=== PATIENT | female | born 1980 | race Asian ===

== ENCOUNTER → 2016-04-18 | Outpatient (CLI) | payer OTHER ==
[~2016-04-18] MED LIST: GADOBUTROL 10 ML VIAL IVP ONE
--- NOTE | 2016-04-18 19:55 | MR ---
MRI of the Brain (Without and With Contrast) at 1655 hours Clinical Indication: Dizziness. G35--MS. Technique: T1-weighted images were acquired axially and sagittally from the foramen magnum to the ve rtex. Axial fast inversion-recovery, fast T2-weighted, and diffusion-weighted axial images were obta ined, without contrast. Postcontrast multiplanar axial, coronal, and sagittal T1 and T2 FLAIR images , with the uneventful intravenous administration of 6 mL Gadavist contrast. Comparison: MRI brain June 2012. Findings: Throughout the white matter of bilateral cerebral hemispheres including bilateral frontal, parietal, occipital, and temporal lobes, most prominent in the bilateral frontal and left parietal l obes, there are multiple hyperintense T2/FLAIR nonenhancing white matter lesions, which also involve the pericallosal white matter and are consistent with multiple sclerosis demyelinating plaques. None of the plaques appear to have enhancement on today's study. However, there are a few new nonenhanci ng periventricular demyelinating plaques, which were not present on the prior study including right f rontal periventricular white matter on image #22 of the FLAIR series, left parietal periventricular i mage #20, left occipital periventricular image #18. Previously identified nonenhancing demyelinating plaque in the left cerebellar hemisphere again noted on image #9. No hydrocephalus. Postcontrast i mages demonstrate no definite enhancing demyelinating plaques. Subtle periaqueductal hyperintense T2 /FLAIR signal, similar to the previous study, involving the mesencephalon. The ventricles, cisterns, and sulci are normal, without atrophy, hydrocephalus, midline shift, hernia tion, or epidural/subdural hematomas. No intracranial hemorrhage. Diffusion-weighted images demonst rate no acute infarct. Cerebellar tonsils are in normal position. Pituitary gland is normal in size . Normal signal flow void in the superior sagittal sinus, basilar artery, and bilateral internal car otid arteries indicating patency. Postcontrast images demonstrate no enhancing lesions or abnormal l eptomeningeal enhancement. Paranasal sinuses and mastoid air cells are clear. Impression: 1. Multiple nonenhancing demyelinating plaques consistent with multiple sclerosis, with the majority present on the previous study although there are a few new nonenhancing demyelinating plaques since 2013. 2. Left cerebellar nonenhancing demyelinating plaque again noted. 3. No acute infarct, acute hemorrhage, hydrocephalus, or enhancing masses. E:amm
== END ==
LOC: FIMAGING 16:16
PROVIDERS: ATTEND Psychiatry & Neurology Neurology
DX: G35 Multiple sclerosis (principal); G37.9 Demyelinating disease of central nervous system, unspecified
CPT/HCPCS: A9585

== ENCOUNTER → 2017-01-25 | Outpatient (CLI) | payer OTHER | LOC: FIMAGING 11:09 | PROVIDERS: ATTEND Psychiatry & Neurology Neurology | DX: G35 Multiple sclerosis (principal) ==

== ENCOUNTER → 2018-01-19 | Outpatient (CLI) | payer OTHER | LOC: FIMAGING 17:50 | PROVIDERS: ATTEND Psychiatry & Neurology Neurology | DX: G35 Multiple sclerosis (principal); M50.20 Other cervical disc displacement, unspecified cervical region; R20.0 Anesthesia of skin; R53.83 Other fatigue ==